=== PATIENT | male | born 1980 | race Hispanic/Latino ===

== ENCOUNTER 2018-04-13 22:38 | Emergency (ER) | payer BC ==
[2018-04-14] MEDS ORDERED: DIAZEPAM 2 MG TABLET ONE (00:30)
[2018-04-14] MEDS ORDERED: HYDROCODONE/APAP 5/325 MG TAB ONE (00:30)
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
[2018-04-14 02:22] VITALS: TEMP 98.9
[2018-04-14 02:29] VITALS: BP 122/82; O2SAT 97
--- NOTE | 2018-04-14 07:59 | RAD REPORT ---
EXAM DESCRIPTION: RAD - Lumbar Spine 3 Views - 04/14/2018 12:45 am CLINICAL HISTORY: Back pain FINDINGS: The alignment of the lumbar spine is satisfactory. No fracture or dislocation is seen. Mild spondylosis involves the lumbar spine
--- NOTE | 2018-04-14 08:00 | RAD REPORT ---
EXAM DESCRIPTION: RAD - Wrist Left 3 View - 04/14/2018 12:48 am CLINICAL HISTORY: Left wrist pain status post injury FINDINGS: No fracture or dislocation is seen. If the patient continues to have symptoms to suggest an occult fracture then a followup plain film se modesta in 7 days would be recommended
== END 2018-04-14 01:35 | disposition home or self-care (01) ==
LOC: ER 22:38
DX: S63.592A Other specified sprain of left wrist, initial encounter (principal); V59.40XA Driver of pick-up truck or van injured in collision with unspecified motor vehicles in traffic accident, initial encounter; Z79.4 Long term (current) use of insulin; I10 Essential (primary) hypertension; E11.9 Type 2 diabetes mellitus without complications; E78.5 Hyperlipidemia, unspecified; F17.210 Nicotine dependence, cigarettes, uncomplicated
CPT/HCPCS: 72100; 99284

== ENCOUNTER 2021-12-21 21:09 | Emergency (ER) | payer BC ==
--- OUTSIDE RECORDS SUMMARY | 2021-12-21 21:12 | XMS REPORT | Continuity of Care Document ---
:1980 Author Organization [facility] t Address [address] [place] [address] Care Team Providers Name Role Phone EDGAR FERRO Attending Clinician Unavailable MD EDGAR FERRO Attending Clinician Unavailable Asia Torres Attending Clinician Unavailable KASIE Admitting Clinician Unavailable DARRYL ARREAGA Admitting Clinician Unavailable Asia Torres Admitting Clinician Unavailable Payers Payer Name Policy Type Policy Number Effective Date Expiration Date S ource Problems This patient has no known problems. Allergies, Adverse Reactions, Alerts Allergy Allergy Status Severity Reaction(s) Onset Inactive Treating Comm ents Source Name Type Date Date Clinician No Known DA Active [facility] Allergie 01-02 [facility] 00:00: [facility] 00 [facility] No Known DA Active U [facility] Allergie 01-02 [facility] 00:00: [address] Medications This patient has no known medications. Procedures Procedure Date / Time Performed Performing Clinician Sour e [id number] 2021-01-02 00:00:00 SEPRO. [facility] [id number] 2021-01-02 00:00:00 [facility] Encounters Start End Encounter Admission Attending Care Care Encounter Source Date/Time Date/Time Type Type Clinicians Facility Department ID 2021-08-11 2021-08-11 Outpatient [facility] [id number] 00:00:00 00:00:00 EDGAR 82Julio C[facility] 2021-06-30 2021-06-30 Outpatient BORQUE, [facility] [id number] 00:00:00 00:00:00 EDGAR 247 Method i 2021-06-02 2021-06-02 Outpatient BORQUE, [facility] [id number] 00:00:00 00:00:00 EDGAR 183 Method i 2021-06-02 2021-06-02 Outpatient BORNISH, [facility] [id number] 00:00:00 00:00:00 EDGAR 766 Method i 2021-05-16 2021-05-16 Outpatient BORQUE, [facility] 353 [id number] 00:00:00 00:00:00 EDGAR 732 Method i 2021-05-13 2021-05-13 Outpatient BORQUE, [facility] [id number] 00:00:00 00:00:00 EDGAR 573 Method i 2021-04-14 2021-04-14 Outpatient BORNISH, [facility] [id number] 00:00:00 00:00:00 EDGAR 251 Method i 2021-03-07 2021-03-07 Outpatient BORQUE, [facility] [id number] 00:00:00 00:00:00 EDGAR 943 Method i 2021-02-03 2021-02-03 Outpatient BORNISH, [facility] [id number] 00:00:00 00:00:00 EDGAR 967 Method i 2021-02-03 2021-02-03 Outpatient KASIE, [facility] [id number] 00:00:00 00:00:00 EDGAR 843 Method i 2021-01-02 2021-01-03 Inpatient MARKY Torres, [facility] MEDI.01 [id number] [facility] 08:30:00 10:08:00 Sen [id number] [facility] Results Test Description Test Time Test Comments Results Result Comments Source SARS-CoV-2 (COVID-19) RNA [Presence] in Respiratory sp ecimen by 2021-05-13 22:49:22 HAILE with probe detection Test Item Value Reference Range Interpretation Comme nts SARS-CoV-2 (COVID-19) RNA [Presence] in Respiratory Not detected No t-Detected specimen by HAILE with probe detection (test code = 28794-1) Whether patient is employed in a healthcare setting (test code = 18385-2) Whether the patient has symptoms related to condition of interest (test code = 38290-7) Patient was hospitalized because of this condition (test code = 03823-8) Whether the patient was admitted to intensive care unit (ICU) for condition of interest (test code = 30006-7) Whether patient resides in a congregate care setting (test code = 41823-8) SURGICAL [id number] 16:05:00 Test Item Value Reference Range Interpretation Comments SURGICAL SPECIMENS (test code = SURG) RUN DATE: 01/03/21 [facility] - LAB PAGE 1 RUN TIME: 1605 Specimen Inquiry RUN USER: INTERFACE PATIENT: NAILA KAY LOC: P.6 AMAYA Li U #: [id number] AGE/SX: 40/M ROOM: [facility] RE01/02/21REG DR: Sen Torres MD : 76 BED: 1 DIS: 01/03/21 STATUS: DIS IN TLOC: SPEC #: [id number] RECD: 01/02/21 STATUS: MIRIAM ISAAC #: [id number] ISSA: 01/02/[address] [facility] [address]: Sen Torres MD ENTERED: 01/02/21 SP TYPE: SURG OTHR DR: Self Referred ORDERED: [id number], PATH SPEC, H E STAIN HISTOLOGY: TISSUE ID BLK PCS MELISSA LEV / PROCEDURE DISPOSITION ____ ___ ___ ___ ___ LUNG BIOPSY A 1 3 TISSUES: A. LUNG BIOPSY - Liver Bx CLINICAL HISTORY Morbid Obesity FINAL DIAGNOSIS LIVER, WEDGE BIOPSY: - STEATOHEPATITIS WITH MILD STAGE 1 PERISINUSOIDAL FIBROSIS Comment: The NAFLD score is 4 (steatosis 3; lobular inflammation 1; hepatocyte ballooning 0). No alpha-1 anti-trypsin deposits are identified on the PAS with diastase stain. No increased iron staining is seen on the iron stain. Mild perisinusoidal fibrosis is identified on the trichrome stain. The reticulin stain shows focal disruption of the reticulin framework. All controls show appropriate reactivity. Classic steatohepatitis requires the presence of steatosis, inflammation, and hepatocellular injury in the form of hepatocyte ballooning and/or pericellular fibrosis. The NAFLD score is defined as the scores for steatosis (0-3), lobular inflammation (0-3), and hepatocellular ballooning (0-2). Fibrosis is staged using the Brunt methodology (1 - perisinusoidal fibrosis, focal or extensive ; 2 - perisinusoidal fibrosis and portal fibrosis, focal or extensive; 3 - bridging fibrosis; 4- cirrhosis). CPT 67253 x 4, 83220 CONTINUED ON NEXT PAGE RUN DATE: 01/03/21 [place] [facility] - LAB PAGE 2 RUN TIME: 1605 Specimen Inquiry RUN USER: INTERFACE SPEC #: [id number] PATIENT: ELIZANAILA #[id number] (Continued) --- GROSS DESCRIPTION Received in formalin labeled with the patient's name and "liver biopsy" is a 1.2 x 1 x 0.4 cm murry-brown wedge liver biopsy, submitted entirely in one cassette. CM/se Signed SIGNATURE ON FILE Colette Gibbs MD 01/03/21 7306 END OF REPORT [id number] 06:24:00 Test Item Value Reference Range Interpretation Comments GLUBED (test code = GLUBED) 187 MG/DL 70-105 H [id number] 00:15:00 Test Item Value Reference Range Interpretation Comments GLUBED (test code = GLUBED) 221 MG/DL 70-105 H [id number] 18:22:00 Test Item Value Reference Range Interpretation Comments GLUBED (test code = GLUBED) 253 MG/DL 70-105 H [id number] 17:28:00 Test Item Value Reference Range Interpretation Comments GLUBED (test code = GLUBED) 256 MG/DL 70-105 H
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
[2021-12-21] MEDS ORDERED: HYDROCODONE/APAP 5/325 MG TAB ONE (22:09)
[2021-12-21 23:10] VITALS: BP 132/85; TEMP 98.2; O2SAT 100
== END 2021-12-21 22:12 | disposition home or self-care (01) ==
LOC: ER 21:09
DX: T23.202A Burn of second degree of left hand, unspecified site, initial encounter (principal); X15.0XXA Contact with hot stove (kitchen), initial encounter; Y93.89 Activity, other specified; Y92.010 Kitchen of single-family (private) house as the place of occurrence of the external cause; E11.9 Type 2 diabetes mellitus without complications; I10 Essential (primary) hypertension; F17.290 Nicotine dependence, other tobacco product, uncomplicated
CPT/HCPCS: 99283

== ENCOUNTER 2024-07-24 12:38 | Emergency (ER) | payer BC ==
--- NOTE | 2024-07-24 12:56 | ER ---
Nurse's Notes [facility] Name: Scott Thacker Age: 44 yrs Sex: Male : 1980 Arrival Date: 07/24/2024 Time: 12:38 Bed 8 Private MD: Diagnosis: Balanitis Presentation: 07/24 12:53 Chief complaint: Skin on penis cracking and painful x 1 week. Coronavirus screen: At this time, the client does not indicate any symptoms associated with coronavirus-19. Ebola Screen: No symptoms or risks identified at this time. Initial Sepsis Screen: Does the patient meet any 2 criteria? No. Patient's initial sepsis screen is negative. Does the patient have a suspected source of infection? No. Patient's initial sepsis screen is negative. Risk Assessment: Do you want to hurt yourself or someone else? Patient reports no desire to harm self or others. Onset of symptoms was July 18, 2024. 12:53 Method Of Arrival: Ambulatory 12:53 Acuity: ALVARO 4 hb Triage Assessment: 13:00 General: Appears in no apparent distress. uncomfortable, Behavior is calm, cooperative, cm10 appropriate for age. Pain: Complains of pain in groin. Pain: Pain currently is 8 out of 10 on a pain scale. Neuro: No deficits noted. Level of Consciousness is awake, alert, obeys commands, Oriented to person, place, time, situation, Appropriate for age. Respiratory: No deficits noted. Airway is patent Respiratory effort is even, unlabored, Respiratory pattern is regular, symmetrical. Derm: Abscess located on groin. Historical: - Allergies: 12:54 No Known Allergies; hb - Home Meds: 12:54 metformin 1 Oral tab 1 tab 2 times per day [Active]; atorvastatin 20 mg Oral tab 1 tab hb once daily [Active]; Ozempic subcutaneous [Active]; Jardiance oral [Active]; - PMHx: 12:54 Diabetes - IDDM; Hyperlipidemia; Hypertension; hb - PSHx: 12:54 gastric sleve; knee; hb - Immunization history:: Adult Immunizations unknown. - Infectious Disease History:: Denies. - Social history:: Smoking status: unknown. Screenin:00 [facility] ED Fall Risk Assessment (Adult) History of falling in the last 3 months, cm10 including since admission No falls in past 3 months (0 pts) Confusion or Disorientation No (0 pts) Intoxicated or Sedated No (0 pts) Impaired Gait No (0 pts) Mobility Assist Device Used No (0 pt) Altered Elimination No (0 pt) Score/Fall Risk Level 0 - 2 = Low Risk Oriented to surroundings, Maintained a safe environment, Hourly rounding (assess needs \T\ fall precautionary measures) done. Abuse screen: Denies threats or abuse. Denies injuries from another. Nutritional screening: No deficits noted. Tuberculosis screening: No symptoms or risk factors identified. Vital Signs: 12:53 BP 148 / 98; Pulse 78; Resp 16; Temp 97.4(TE); Pulse Ox 100% on R/A; Pain 3/10; hb 12:53 Pain Scale: Adult hb ED Course: 12:40 Patient arrived in ED. im 12:41 Josue Goins MD is Attending Physician. ec2 12:49 Ping Romano, JOSE is Primary Nurse. cm10 12:54 Triage completed. hb 13:00 Arm band placed on right wrist. Patient placed in an exam room, on a stretcher. cm10 14:01 Patient has correct armband on for positive identification. Provided Education on: cm10 Follow-up instructions. 14:01 No provider procedures requiring assistance completed. Patient did not have IV access cm10 during this emergency room visit. Administered Medications: 13:58 Drug: Ketorolac IM 15 mg IM once Route: IM; Site: right vastus lateralis; cm10 14:12 Follow up: Response: No adverse reaction cm10 13:58 Drug: Acetaminophen-Codeine PO (300 mg-30 mg) 1 tablet PO once; RASS on ADMIN: Combtv4, cm10 Very Agttd3, Agttd2, Rstlss1, AlertClm0, Drwsy-1, Lt Sdtn-2, Mod Sdtn-3, Dp Sdtn-4, UnArsble-5 Route: PO; 14:12 Follow up: Response: No adverse reaction; RASS: Alert and Calm (0) cm10 Medication: 14:00 VIS not applicable for this client. cm10 Outcome: 12:55 Discharge ordered by . ec2 14:01 Discharged to home ambulatory, with significant other, cm10 14:01 Condition: good 14:01 Discharge instructions given to patient, Instructed on discharge instructions, follow up and referral plans. medication usage, Demonstrated understanding of instructions, follow-up care, medications, Prescriptions given X 3, 14:11 Patient left the ED. cm10 Signatures: Judy Howell RN RN hb Mendoza, Itzel im Martinez, Clarissa, RN RN cm10 Josue Goins MD MD ec2
--- NOTE | 2024-07-24 12:56 | EDPHYS ---
Physician Documentation [facility] Name: Scott Thacker Age: 44 yrs Sex: Male : 1980 Arrival Date: 07/24/2024 Time: 12:38 Bed 8 Private MD: ED Physician Josue Goins HPI: 07/24 12:58 This 44 yrs old Male presents to ER via Ambulatory with complaints of Skin ec2 Problem - groin area. 12:58 Patient arrives today for concerns. He is a diabetic, has a history of balanitis, ec2 reports has been having irritation and skin breakdown. No fevers or chills, no nausea or vomiting.. Historical: - Allergies: 12:54 No Known Allergies; hb - Home Meds: 12:54 metformin 1 Oral tab 1 tab 2 times per day [Active]; atorvastatin 20 mg Oral tab 1 tab hb once daily [Active]; Ozempic subcutaneous [Active]; Jardiance oral [Active]; - PMHx: 12:54 Diabetes - IDDM; Hyperlipidemia; Hypertension; hb - PSHx: 12:54 gastric sleve; knee; hb - Immunization history:: Adult Immunizations unknown. - Infectious Disease History:: Denies. - Social history:: Smoking status: unknown. ROS: 12:58 Constitutional: as per hpi ec2 Exam: 12:58 Constitutional: GEN: NAD Head: atraumatic Eyes: EOMI Ears: External ears are ec2 normal. CV: regular rate LUNGS: no respiratory distress ABD: non-distended. : Balanitis noted, surrounding erythema. No crepitus, no discoloration SKIN: no evidence of rashes MSK: no evidence of trauma Vital Signs: 12:53 BP 148 / 98; Pulse 78; Resp 16; Temp 97.4(TE); Pulse Ox 100% on R/A; Pain 3/10; hb 12:53 Pain Scale: Adult hb MDM: 12:41 Medical Screening Exam initiated ec2 12:58 Data reviewed: vital signs, nurses notes. ED course: Patient arrives today for ec2 irritation to the penis. Examination yields skin findings as above. Presentation consistent with balanitis. Will prescribe the patient medications accordingly. Differential diagnoses considered include processes such as cellulitis, Naida's gangrene, abscess.. Administered Medications: 13:58 Drug: Ketorolac IM 15 mg IM once Route: IM; Site: right vastus lateralis; cm10 14:12 Follow up: Response: No adverse reaction cm10 13:58 Drug: Acetaminophen-Codeine PO (300 mg-30 mg) 1 tablet PO once; RASS on ADMIN: Combtv4, cm10 Very Agttd3, Agttd2, Rstlss1, AlertClm0, Drwsy-1, Lt Sdtn-2, Mod Sdtn-3, Dp Sdtn-4, UnArsble-5 Route: PO; 14:12 Follow up: Response: No adverse reaction; RASS: Alert and Calm (0) cm10 Disposition Summary: 07/24/24 12:55 Discharge Ordered Notes: Location: Home ec2 Condition: Stable ec2 Diagnosis - Balanitis ec2 Followup: ec2 - With: Private Physician - When: - Reason: Re-evaluation by your physician Discharge Instructions: - Discharge Summary Sheet ec2 - Balanitis ec2 Forms: - Work release form cm10 - Medication Reconciliation Form ec2 - Antibiotic Education ec2 - Prescription Opioid Use ec2 - Patient Portal Instructions ec2 - Leadership Thank You Letter ec2 Prescriptions: - mupirocin 2 % Topical ointment - apply 1 application TOPICAL route 2 times per day; 22 gram tube; Refills: 0, ec2 Product Selection Permitted - Augmentin 875-125 mg Oral tablet - take 1 tablet ORAL route every 12 hours for 7 days; 14 tablet; Refills: 0, ec2 Product Selection Permitted - Clotrimazole 1 % Topical Cream - Apply to affected area 1 application TOPICAL route every 12 hours; 15 gram; ec2 Refills: 0, Product Selection Permitted Signatures: Judy Howell RN RN Ping Romano RN RN cm10 Josue Goins MD MD ec2 Corrections: (The following items were deleted from the chart) 13:04 12:58 ED course: Patient arrives today for irritation to the penis. Examination yields ec2 skin findings as above. Presentation consistent with balanitis. Will check the patient on medications accordingly. Differential diagnoses considered include processes such as cellulitis, Naida's gangrene, abscess.. ec2
[2024-07-24] MEDS ORDERED: CODEINE 30MG/APAP 300MG TAB ONE (13:47)
[2024-07-24] MEDS ORDERED: KETOROLAC 30 MG/ML INJ ONE (13:47)
[2024-07-24 14:20] VITALS: BP 148/98; TEMP 97.4; O2SAT 100
== END 2024-07-24 14:11 | disposition home or self-care (01) ==
LOC: ER 12:38
DX: N48.1 Balanitis (principal); E11.9 Type 2 diabetes mellitus without complications; E78.5 Hyperlipidemia, unspecified; I10 Essential (primary) hypertension
CPT/HCPCS: 96372; 99284

== ENCOUNTER 2024-08-13 18:17 | Emergency (ER) | payer BC ==
[2024-08-13] MEDS ORDERED: LIDOCAINE 1% 20 ML MDV ONE (19:56)
[2024-08-13] MEDS ORDERED: LIDOCAINE 2% W/EPI 1:200,000 MPF 20 ML VIAL IM ONE (20:01)
[2024-08-13] MEDS ORDERED: ONDANSETRON 4 MG/2 ML VIAL ONE (20:17)
[2024-08-13] MEDS ORDERED: MORPHINE 4 MG/ML SYR ONE ×2 (20:18→22:20)
[2024-08-13] MEDS ORDERED: NA CHLORIDE 0.9% 1,000 ML ONE (20:18)
[2024-08-13 20:23] LABS: Absolute Basophils 0.1 K/uL (0-0.5); Absolute Eosinophils 0.1 K/uL (0-0.5); Absolute Lymphocytes (CBC) 1.9 K/uL (0.7-4.9); Absolute Monocytes 0.8 K/uL (0.1-1.3); Absolute Neutrophil 6.4 K/uL (1.8-8.0); Basophils % 0.6 % (0-1.3); Eosinophils % 0.8 % (0-4.4); Hemoglobin 14.5 g/dL (13.6-17.9); Lymphocytes % 20.2 % (15.3-44.8); MCH 30.8 pg (27.0-35.0); MCHC 35.4 g/dL (32.0-36.0); MCV 86.9 fL (80-100); MPV 8.2 fL (7.6-11.3); Monocytes % 9.2 % (3.3-12.3); Neutrophils % 69.2 % (41.7-73.7); Platelets 273 thou/uL (152-406); RBC Red Blood Cell Count 4.71 M/uL (4.33-5.43); Red Cell Distribution Width 12.7 % (12.1-15.2)
[2024-08-13 20:56] LABS: Albumin 3.3 g/dL (3.4-5.0); Albumin/Globulin Ratio 0.8 (1.1-1.8); Anion Gap 9.6 mEq/L (5.0-15.0); Bilirubin Total 0.6 mg/dL (0.2-1.0); Globulin 4.1 g/dL (2.3-3.5); Potassium 3.6 mEq/L (3.5-5.1); Protein, Total 7.4 g/dL (6.4-8.2)
[2024-08-13] MEDS ORDERED: CLINDAMYCIN 900MG/D5W 900 MG/50 ML IVPB IV ONE (21:09)
--- NOTE | 2024-08-13 22:45 | EDPHYS ---
Physician Documentation [facility] Name: Scott Thacker Age: 44 yrs Sex: Male : 1980 Arrival Date: 08/13/2024 Time: 18:17 Bed 16 Private MD: ED Physician Amador Mckenzie HPI: 08/13 19:00 This 44 yrs old Male presents to ER via Ambulatory with complaints of Boil - cp left leg and groin. 19:00 The patient presents with an abscess of the left salazar and right groin. Description: cp erythematous, swollen, warm. 19:00 Onset: The symptoms/episode began/occurred abscess to left salazar 2 weeks ago and abscess cp to right groin 1 week ago. Possible cause(s): unknown. Associated signs and symptoms: Pertinent negatives: fever, headache. Historical: - Allergies: 18:41 No Known Allergies; db - PMHx: 18:41 Diabetes - IDDM; Hyperlipidemia; Hypertension; db - PSHx: 18:41 gastric sleve; knee; db - Immunization history:: Adult Immunizations unknown. - Infectious Disease History:: Denies. - Social history:: Smoking status: . ROS: 19:05 Skin: Positive for abscess, of the right groin and left salazar, cp 19:05 Constitutional: Negative for body aches, chills, fever, cp 19:05 Respiratory: Negative for cough, shortness of breath, wheezing, 19:05 Abdomen/GI: Negative for abdominal pain, vomiting, diarrhea, constipation, 19:05 : Negative for urinary symptoms, 19:05 All other systems are negative, Exam: 19:10 Constitutional: The patient appears in no acute distress, alert, awake, non-toxic, well cp developed, well nourished, 19:10 Head/Face: Normocephalic, atraumatic. cp 19:10 Eyes: Periorbital structures: appear normal, Conjunctiva: normal, no exudate, no injection, Sclera: no appreciated abnormality, Lids and lashes: appear normal, bilaterally, 19:10 ENT: External ear(s): are unremarkable, Nose: is normal, Mouth: Lips: moist, Oral mucosa: moist, Posterior pharynx: Airway: no evidence of obstruction, patent, 19:10 Chest/axilla: Inspection: normal, 19:10 Cardiovascular: Rate: tachycardic, 19:10 Respiratory: the patient does not display signs of respiratory distress, Respirations: normal, no use of accessory muscles, no retractions, labored breathing, is not present, Breath sounds: are clear throughout, no decreased breath sounds, 19:10 Abdomen/GI: Inspection: abdomen appears normal, Palpation: abdomen is soft and non-tender, in all quadrants, 19:10 Skin: abscess, of the right groin, with surrounding cellulitis, that is mild, area of fluctuance and scant drainage noted to left salazar, well circumscribed surrounding erythema. 19:10 Neuro: Orientation: to person, place \T\ time. Mentation: is normal, Vital Signs: 18:38 BP 139 / 101; Pulse 106; Resp 18; Temp 99; Pulse Ox 97% ; db 20:35 BP 129 / 93; Pulse 97; Resp 17; Pulse Ox 97% on R/A; Pain 5/10; rg5 21:25 BP 148 / 92; Pulse 99; Resp 17; Pulse Ox 97% on R/A; Pain 8/10; rg5 22:00 BP 157 / 97; Pulse 95; Resp 17; Pulse Ox 97% on R/A; Pain 8/10; rg5 23:00 BP 119 / 79; Pulse 93; Resp 17; Temp 98; Pulse Ox 97% on R/A; Pain 5/10; rg5 20:35 Pain Scale: Adult rg5 21:25 Pain Scale: Adult rg5 22:00 Pain Scale: Adult rg5 23:00 Pain Scale: Adult rg5 Procedures: 22:45 I \T\ D: Incision and drainage was performed for an abscess of the left salazar Prepped with cp Betadine, Anesthetized with ml's 2% Lidocaine with epinephrine. 4 ml's 2% Lidocaine with epinephrine. Incised with #11 blade. Drained small amount purulent fluid. Packed with iodoform gauze, Dressing: sterile 4x4 gauze, the patient tolerated the procedure well. 22:45 I \T\ D: Incision and drainage was performed for an abscess of the right groin Prepped cp with Betadine, Anesthetized with ml's 2% Lidocaine with epinephrine. 5 ml's 2% Lidocaine with epinephrine. Incised with #11 blade. Drained small amount purulent fluid. bloody fluid. Packed with iodoform gauze, Dressing: sterile 4x4 gauze, the patient tolerated the procedure well. MDM: 18:38 Medical Screening Exam initiated cp 22:45 Data reviewed: vital signs, nurses notes, lab test result(s), and as a result, I will cp discharge patient. 22:45 Differential diagnosis: abscess, cellulitis, sepsis. I considered the following cp discharge prescriptions or medication management in the emergency department Medications were administered in the Emergency Department. See MAR. Care significantly affected by the following chronic conditions: Diabetes, Hypertension. Counseling: I had a detailed discussion with the patient and/or guardian regarding the historical points, exam findings, and any diagnostic results supporting the discharge/admit diagnosis, lab results, to return to the emergency department if symptoms worsen or persist or if there are any questions or concerns that arise at home. Response to treatment: the patient's symptoms have mildly improved after treatment, and as a result, I will discharge patient. 08/13 20:00 Order name: CBC with Diff; Complete Time: 20:57 08/13 20:00 Order name: CMP; Complete Time: 20:57 08/13 20:00 Order name: Lactate w/ 2H reflex if indic.; Complete Time: 20:57 08/13 18:44 Order name: I\T\D Setup; Complete Time: 20:59 08/13 20:00 Order name: IV Saline Lock; Complete Time: 20:24 08/13 20:00 Order name: Labs collected and sent; Complete Time: 20:24 08/13 22:43 Order name: Wound dressing; Complete Time: 23:05 cp Administered Medications: 20:24 Drug: Ondansetron IVP 4 mg IVP once; over 2 minutes Route: IVP; Site: left antecubital; rg5 20:59 Follow up: Response: No adverse reaction; Pain is decreased rg5 20:24 Drug: morphine IVP or IV 4 mg IVP once over 4 mins Route: IVP; Infused Over: 4 mins; rg5 Site: left antecubital; 20:59 Follow up: Response: No adverse reaction; Pain is decreased rg5 20:24 Drug: NS 0.9% IV 1000 ml IV at 1 bolus Per protocol; to be given as a bolus over 60 rg5 minutes Route: IV; Rate: 1 bolus; Site: left antecubital; 22:28 Follow up: IV Status: Completed infusion; IV Intake: 1000ml rg5 21:15 Drug: Clindamycin IVPB 900 mg IVPB once over 30 mins; (mix in 50 mL) Route: IVPB; rg5 Infused Over: 30 mins; Site: left antecubital; 22:28 Follow up: IV Status: Completed infusion; IV Intake: 50ml rg5 22:29 Drug: Lidocaine Infiltration (2 %) 20 ml 5 ml Infiltration once; with epinephrine rg5 {Note: given by provider.} Volume: 5 ml; Route: Infiltration; 23:00 Drug: Trimethoprim-Sulfamethoxazole PO (160 mg-800 mg (DS) 2 tabs PO once Route: PO; rg5 23:29 Follow up: Response: No adverse reaction rg5 Point of Care Testing: Blood Glucose: 18:41 Blood Glucose: 183 mg/dL; db Ranges: Critical Glucose Levels:Adult <50 mg/dl or >400 mg/dl <40 mg/dl or >180 mg/dl Disposition: 08/14 23:09 Chart complete. cp Disposition Summary: 08/13/24 22:45 Discharge Ordered Notes: Location: Home cp Problem: new cp Symptoms: have improved cp Condition: Stable cp Diagnosis - Cutaneous abscess of left lower limb - lower leg cp - Cutaneous abscess of groin - right cp Followup: cp - With: Abiodun Romano MD - When: 1 - 2 days - Reason: Wound Recheck Discharge Instructions: - Discharge Summary Sheet cp - Skin Abscess cp - Incision and Drainage cp - Incision and Drainage, Care After cp Forms: - Work release form cp - Medication Reconciliation Form cp - Antibiotic Education cp - Prescription Opioid Use cp - Patient Portal Instructions cp - Leadership Thank You Letter cp Prescriptions: - acetaminophen-codeine 300-30 mg Oral tablet - take 2 tablet ORAL route every 8 hours as needed for pain; 16 tablet; Refills: cp 0, Product Selection Permitted - Anaprox DS 550 mg Oral Tablet - take 1 tablet ORAL route every 12 hours As needed; 20 tablet; Refills: 0, cp Product Selection Permitted - Clindamycin HCl 300 mg Oral Capsule - take 1 capsule ORAL route every 6 hours for 10 days; 40 capsule; Refills: 0, cp Product Selection Permitted - Bactrim DS 800-160 mg Oral Tablet - take 1 tablet ORAL route every 12 hours for 10 days; 20 tablet; Refills: 0, cp Product Selection Permitted Addendum: 08/16/2024 13:31 Co-signature as Attending Physician, Amador Mckenzie MD I reviewed the patient's care r n provided by the Advanced Practice Provider and agree with the diagnosis and treatment plan. Signatures: Dispatcher [employer] EDMS Amador Mckenzie MD MD rn Fernando Ibarra PA PA cp Tanika Torres RN RN db New Farris RN RN rg5 Corrections: (The following items were deleted from the chart) 08/13 20:01 20:00 CBC+H.LAB.BRZ ordered. EDMS EDMS 20:01 20:00 COMPREHENSIVE METABOLIC PANEL+C.LAB.BRZ ordered. EDMS EDMS 20:01 20:00 LACTATE+C.LAB.BRZ ordered. EDMS EDMS
--- NOTE | 2024-08-13 22:45 | ER ---
Nurse's Notes [facility] Name: Scott Thacker Age: 44 yrs Sex: Male : 1980 Arrival Date: 08/13/2024 Time: 18:17 Bed 16 Private MD: Diagnosis: Cutaneous abscess of left lower limb-lower leg;Cutaneous abscess of groin-right Presentation: 08/13 18:38 Chief complaint: Patient states: ABSCESS TO LEFT LEG X 2 WEEKS AND RIGHT INNER THIGH X db 1 WEEK. STATES YESTERDAY THEY STARTED DRAINING. Coronavirus screen: Client denies travel out of the [place] in the last 14 days. At this time, the client does not indicate any symptoms associated with coronavirus-19. Ebola Screen: Patient negative for fever greater than or equal to 101.5 degrees Fahrenheit, and additional compatible Ebola Virus Disease symptoms Patient denies exposure to infectious person. Patient denies travel to an Ebola-affected area in the 21 days before illness onset. No symptoms or risks identified at this time. Initial Sepsis Screen: Does the patient meet any 2 criteria? No. Patient's initial sepsis screen is negative. Does the patient have a suspected source of infection? No. Patient's initial sepsis screen is negative. Risk Assessment: Do you want to hurt yourself or someone else? Patient reports no desire to harm self or others. Onset of symptoms was August 13, 2024. 18:38 Method Of Arrival: Ambulatory db 18:38 Acuity: ALVARO 3 db Triage Assessment: 18:41 General: Appears in no apparent distress. comfortable, Behavior is calm, cooperative. db Pain: Complains of pain in right inner thigh and left leg. 18:41 Derm: Abscess located on left salazar and right inner thigh. db Historical: - Allergies: 18:41 No Known Allergies; db - PMHx: 18:41 Diabetes - IDDM; Hyperlipidemia; Hypertension; db - PSHx: 18:41 gastric sleve; knee; db - Immunization history:: Adult Immunizations unknown. - Infectious Disease History:: Denies. - Social history:: Smoking status: . Screenin:30 [facility] ED Fall Risk Assessment (Adult) History of falling in the last 3 months, rg5 including since admission No falls in past 3 months (0 pts) Confusion or Disorientation No (0 pts) Intoxicated or Sedated No (0 pts) Impaired Gait No (0 pts) Mobility Assist Device Used No (0 pt) Altered Elimination No (0 pt) Score/Fall Risk Level 0 - 2 = Low Risk Oriented to surroundings, Maintained a safe environment, Hourly rounding (assess needs \T\ fall precautionary measures) done. Abuse screen: Denies threats or abuse. Nutritional screening: No deficits noted. Tuberculosis screening: No symptoms or risk factors identified. Assessment: 19:30 General: Appears comfortable, Behavior is calm, cooperative, appropriate for age. rg5 19:30 Pain: Complains of pain in right leg and left leg Pain currently is 7 out of 10 on a rg5 pain scale. Quality of pain is described as aching. Neuro: Level of Consciousness is awake, alert, obeys commands, Oriented to person, place, time. Cardiovascular: Denies chest pain. Respiratory: Airway is patent Trachea midline Respiratory effort is even, unlabored, Respiratory pattern is regular, symmetrical. GI: Abdomen is round non-distended. : No signs and/or symptoms were reported regarding the genitourinary system. EENT: No deficits noted. Derm: Abscess located on groin. Musculoskeletal: Circulation, motion, and sensation intact. Range of motion: intact in all extremities. 20:33 Reassessment: No changes from previously documented assessment. Patient and/or family rg5 updated on plan of care and expected duration. Pain level reassessed. Patient is alert, oriented x 3, equal unlabored respirations, skin warm/dry/pink. 21:20 Reassessment: No changes from previously documented assessment. Patient and/or family rg5 updated on plan of care and expected duration. Pain level reassessed. Patient is alert, oriented x 3, equal unlabored respirations, skin warm/dry/pink. 22:25 Reassessment: Patient and/or family updated on plan of care and expected duration. Pain rg5 level reassessed. Patient is alert, oriented x 3, equal unlabored respirations, skin warm/dry/pink. 23:00 Reassessment: No changes from previously documented assessment. Patient and/or family rg5 updated on plan of care and expected duration. Pain level reassessed. Patient states symptoms have improved. Vital Signs: 18:38 BP 139 / 101; Pulse 106; Resp 18; Temp 99; Pulse Ox 97% ; db 20:35 BP 129 / 93; Pulse 97; Resp 17; Pulse Ox 97% on R/A; Pain 5/10; rg5 21:25 BP 148 / 92; Pulse 99; Resp 17; Pulse Ox 97% on R/A; Pain 8/10; rg5 22:00 BP 157 / 97; Pulse 95; Resp 17; Pulse Ox 97% on R/A; Pain 8/10; rg5 23:00 BP 119 / 79; Pulse 93; Resp 17; Temp 98; Pulse Ox 97% on R/A; Pain 5/10; rg5 20:35 Pain Scale: Adult rg5 21:25 Pain Scale: Adult rg5 22:00 Pain Scale: Adult rg5 23:00 Pain Scale: Adult rg5 ED Course: 18:20 Patient arrived in ED. im 18:30 Fernando Ibarra PA is PHCP. cp 18:30 Amador Mckenzie MD is Attending Physician. cp 18:41 Triage completed. db 18:41 Arm band placed on right wrist. db 19:30 Patient has correct armband on for positive identification. Placed in gown. Bed in low rg5 position. Call light in reach. Side rails up X 1. Door closed. Noise minimized. Warm blanket given. 19:30 No provider procedures requiring assistance completed. Inserted saline lock: 20 gauge rg5 in left antecubital area, using aseptic technique. Blood collected. Flushed with 10 mL NS. 19:51 New Farris, JOSE is Primary Nurse. rg5 22:44 Abiodun Romano MD is Referral Physician. cp 23:27 Provided Education on: POST ER CARE. rg5 23:27 IV discontinued, bleeding controlled, No redness/swelling at site. Pressure dressing rg5 applied. Administered Medications: 20:24 Drug: Ondansetron IVP 4 mg IVP once; over 2 minutes Route: IVP; Site: left antecubital; rg5 20:59 Follow up: Response: No adverse reaction; Pain is decreased rg5 20:24 Drug: morphine IVP or IV 4 mg IVP once over 4 mins Route: IVP; Infused Over: 4 mins; rg5 Site: left antecubital; 20:59 Follow up: Response: No adverse reaction; Pain is decreased rg5 20:24 Drug: NS 0.9% IV 1000 ml IV at 1 bolus Per protocol; to be given as a bolus over 60 rg5 minutes Route: IV; Rate: 1 bolus; Site: left antecubital; 22:28 Follow up: IV Status: Completed infusion; IV Intake: 1000ml rg5 21:15 Drug: Clindamycin IVPB 900 mg IVPB once over 30 mins; (mix in 50 mL) Route: IVPB; rg5 Infused Over: 30 mins; Site: left antecubital; 22:28 Follow up: IV Status: Completed infusion; IV Intake: 50ml rg5 22:29 Drug: Lidocaine Infiltration (2 %) 20 ml 5 ml Infiltration once; with epinephrine rg5 {Note: given by provider.} Volume: 5 ml; Route: Infiltration; 23:00 Drug: Trimethoprim-Sulfamethoxazole PO (160 mg-800 mg (DS) 2 tabs PO once Route: PO; rg5 23:29 Follow up: Response: No adverse reaction rg5 Medication: 19:30 VIS not applicable for this client. rg5 Point of Care Testing: Blood Glucose: 18:41 Blood Glucose: 183 mg/dL; db Ranges: Intake: 22:28 IV: 1000ml; Total: 1000ml. rg5 22:28 IV: 50ml; Total: 1050ml. rg5 Outcome: 22:45 Discharge ordered by MD. cp 23:27 Discharged to home ambulatory, rg5 23:27 Condition: stable 23:27 Discharge instructions given to patient, family, Instructed on discharge instructions, follow up and referral plans. Demonstrated understanding of instructions, follow-up care, medications, Prescriptions given X 4, 23:29 Patient left the ED. rg5 Signatures: Fernando Ibarra PA PA cp Benton, Danielle, RN RN Melony Llamas Rommel RN RN rg5
[2024-08-13] MEDS ORDERED: SMZ./TMP. 800/160 MG TABLET ONE (23:00)
== END 2024-08-13 23:29 | disposition home or self-care (01) ==
LOC: ER 18:17
PROC: 0H9AXZZ Drainage of Inguinal Skin, External Approach (ICD-10-PCS; principal; 2024-08-13)
PROC: 0H9LXZZ Drainage of Left Lower Leg Skin, External Approach (ICD-10-PCS; 2024-08-13)
DX: L02.416 Cutaneous abscess of left lower limb (principal); L02.214 Cutaneous abscess of groin
CPT/HCPCS: 96365; 96361; 85025; 36415; 82947; 83605; 80053; 96375; 99284; 10060; J2405; J7030; J2003